=== PATIENT | female | born 1960 | race Caucasian/White ===

== ENCOUNTER 2017-02-14 11:33 | Inpatient (IN) | payer OTHER ==
[~2017-02-14] VITALS: Ht 157.5 cm; Wt 96.0 kg
[~2017-02-14 11:33] MED LIST: ASPI-1182 PO; CARV12.580 PO; DSS100 PO; FURO20TA4 PO; LISI20TA PO; METF500T7 PO; PANT40SU PO; PRAV40TA4 PO; SENN-31 PO; SPIR25TA PO
[2017-02-14 12:03] LABS: GLUCOSE,POINT OF CARE 147 MG/DL (70-110)
[2017-02-14] MEDS ORDERED: DSS100 PO (12:12)
[2017-02-14] MEDS ORDERED: VITAD50000 PO (12:12)
[2017-02-14] MEDS ORDERED: CARV12 PO (12:12)
[2017-02-14] MEDS ORDERED: ARIP2 PO (12:12)
[2017-02-14] MEDS ORDERED: INSU100C14 SQ (12:12)
[2017-02-14] MEDS ORDERED: MOME13HF IH (12:12)
[2017-02-14] MEDS ORDERED: LIDO700A15 TP (12:12)
[2017-02-14] MEDS ORDERED: ALBU8HFA IH (12:12)
[2017-02-14] MEDS ORDERED: EXEN2PEN INJ (12:12)
[2017-02-14] MEDS ORDERED: CANA100T PO (12:12)
[2017-02-14] MEDS ORDERED: APIX5TAB PO (12:12)
[2017-02-14] MEDS ORDERED: INSNOV SQ (12:12)
[2017-02-14] MEDS ORDERED: MONT10TA21 PO (12:12)
[2017-02-14] MEDS ORDERED: INSLAN SQ (12:12)
[2017-02-14] MEDS ORDERED: LORA10TA7 PO (12:12)
[2017-02-14] MEDS ORDERED: ALBU8.5H8 IH (12:12)
[2017-02-14] MEDS ORDERED: TIOT185 IH (12:12)
[2017-02-14] MEDS ORDERED: NITR.4 SL (12:12)
[2017-02-14] MEDS ORDERED: FERR-89 PO (12:12)
[2017-02-14] MEDS ORDERED: GABA-531 PO (12:12)
[2017-02-14 12:40] LABS: BASOPHILS # (AUTO) 0.09 K/uL (0.00-0.20); BASOPHILS % (AUTO) 0.8 % (0.0-2.0); EOSINOPHILS # (AUTO) 0.41 K/uL (0.00-0.70); EOSINOPHILS % (AUTO) 3.47 % (1.0-6.0); HEMATOCRIT 52.4 % (36-46); HEMOGLOBIN 17.9 g/dL (12.0-16.0); LYMPHOCYTES # (AUTO) 2.2 K/uL (1.0-4.8); LYMPHOCYTES % (AUTO) 18.5 % (22.0-44.0); MEAN CORPUSCULAR HEMOGLOBIN 31.1 pg (26.0-34.0); MEAN CORPUSCULAR HGB CONC 34.2 G/dL (31.0-37.0); MEAN CORPUSCULAR VOLUME 91 fL (80-100); MONOCYTES # (AUTO) 0.7 K/uL (0.1-1.0); MONOCYTES % (AUTO) 5.9 % (2.0-9.0); NEUTROPHILS # (AUTO) 8.4 K/uL (1.8-7.7); NEUTROPHILS % (AUTO) 71.4 % (40.0-70.0); PLATELET COUNT (AUTO) 280 K/uL (150-450); RED BLOOD CELL COUNT(AUTO) 5.77 MIL/uL (4.00-5.20); RED CELL DISTRIBUTION WIDTH 13.8 % (11.5-14.5); WHITE BLOOD COUNT (AUTO) 11.7 K/uL (4.5-11.0)
[2017-02-14 12:41] LABS: ANION GAP 15 mmol/L (8-16); CALCIUM, TOTAL 10.1 mg/dL (8.8-10.5); CARBON DIOXIDE 23 mmol/L (22-29); CHLORIDE 103 mmol/L (98-107); CREATININE 1.61 mg/dL (0.60-1.30); GLOMERULAR FILTR. RATE CALC 33 mL/min (>60); POTASSIUM 3.4 mmol/L (3.5-5.1); SODIUM SERUM 141 mmol/L (136-145); UREA NITROGEN, BLOOD 16 mg/dL (7-18)
[2017-02-14 12:52] LABS: PROTHROMBIN TIME 10.1 SEC (9.4-11.6)
[2017-02-14 13:07] LABS: B-TYPE NATRIURETIC PEPTIDE 19 pg/mL (0-100)
[2017-02-14 13:11] LABS: ALANINE AMINOTRANSFERASE 48 U/L (12-78); ALBUMIN 3.9 g/dL (3.4-5.0); ASPARTATE AMINOTRANSFERASE 42 U/L (15-37); BILIRUBIN,TOTAL 0.4 mg/dL (0.1-1.0); CREATINE KINASE MB 1.4 ng/mL (0-5); CREATINE KINASE, TOTAL 88 U/L (26-192); TOTAL PROTEIN, SERUM 8.6 g/dL (6.4-8.2)
[2017-02-14] MEDS ORDERED: ALBUTEROL SULFATE 2.5 MG/0.5 ML NEB SOLUTION NEB ONE (14:00)
[2017-02-14] MEDS ORDERED: IPRATROPIUM BROMIDE 0.5 MG/2.5 ML NEB SOLUTION NEB ONE (14:00)
[2017-02-14] MEDS ORDERED: 0.9% SODIUM CHLORIDE 5 ML NEB SOLUTION NEB ONE (14:03)
[2017-02-14 15:34] LABS: APPEARANCE,URINE CLOUDY (CLEAR); GLUCOSE, URINE (UA) >=1000 mg/dL (NEGATIVE); KETONES,URINE TRACE mg/dL (NEGATIVE); LEUKOCYTE ESTERASE ,URINE NEGATIVE (NEGATIVE); OCCULT BLOOD,URINE NEGATIVE (NEGATIVE); PROTEIN,URINE SEE CONFIRM (NEGATIVE)
[2017-02-14 15:35] LABS: ADD UA MICROSCOPIC YES
[2017-02-14 15:43] LABS: SULFOSALICYLIC ACID,URINE 2+ (Negative)
[2017-02-14 15:44] LABS: SQUAMOUS EPITHELIAL CELL,UR Moderate /LPF (None Seen)
[2017-02-14 15:48] LABS: ABG A-A DIFF O2 96.7 mmHg (10-20.0); ABG BASE EXCESS 2.1 mmol/L (-2.0-3.0); ABG HCO3 25.8 mmol/L (22.0-26.0); ABG OXYHEMOGLOBIN 95.5 % (94.0-100.0); ABG PCO2 44 mmHg (35-45); ABG PH 7.402 (7.35-7.450); ALLEN TEST, BLOOD GAS Positive; TEMPERATURE, FAHRENHEIT, BG 98.6 FAHREN (96.0-98.6)
[2017-02-14 15:53] LABS: RBC,URINE 0-2 /HPF (0-2); WBC,URINE 0-2 /HPF (0-5)
[2017-02-14] MEDS ORDERED: MethylPREDNISolone SOD SUCC 125 MG/2 ML VIAL IVP ONE (16:00)
[2017-02-14] MEDS ORDERED: ACETAMINOPHEN 325 MG TABLET PO PRN ×2 (18:30→19:15)
[2017-02-14] MEDS ORDERED: ONDANSETRON HCL 4 MG/2 ML VIAL IVP PRN ×2 (18:30→19:15)
[2017-02-14] MEDS ORDERED: 0.9% SODIUM CHLORIDE 10 ML SYRINGE IVP PRN (18:30)
[2017-02-14] MEDS ORDERED: NITROGLYCERIN 0.4 MG SUBLINGUAL TABLET #25 SL PRN (19:15)
[2017-02-14] MEDS ORDERED: OxyCODONE HCL/ACETAMINOPHEN 5-325 MG TABLET PO PRN (19:15)
[2017-02-14] MEDS ORDERED: IPRATROPIUM BROMIDE 0.5 MG/2.5 ML NEB SOLUTION NEB PRN (19:15)
[2017-02-14] MEDS ORDERED: POTASSIUM CHLORIDE 20 MEQ ER TABLET PO PRN ×2 (19:15)
[2017-02-14] MEDS ORDERED: MAGNESIUM SULFATE 4 GM/WATER 100 ML IV PRN (19:15)
[2017-02-14] MEDS ORDERED: POTASSIUM CHL 10 MEQ/WATER 50 ML IV PRN (19:15)
[2017-02-14] MEDS ORDERED: BISACODYL 10 MG RECTAL RECTAL SUPPOSITORY PR PRN (19:15)
[2017-02-14] MEDS ORDERED: MORPHINE SULFATE 2 MG/ML SYRINGE IVP PRN (19:15)
[2017-02-14] MEDS ORDERED: ALBUTEROL SULFATE 2.5 MG/0.5 ML NEB SOLUTION NEB PRN (19:15)
[2017-02-14] MEDS ORDERED: DEXTROSE 50%-WATER 25 GM/50 ML SYRINGE IVP PRN ×2 (19:15→23:15)
[2017-02-14] MEDS ORDERED: ZOLPIDEM TARTRATE 5 MG TABLET PO PRN (19:15)
[2017-02-14] MEDS ORDERED: MAGNESIUM SULFATE 2 GM in DEXTROSE 5%-WATER 50 ML IV PRN (19:15)
[2017-02-14] MEDS ORDERED: MAGNESIUM OXIDE 400 MG TABLET PO PRN (19:15)
[2017-02-14] MEDS ORDERED: INSULIN ASPART 100 UNITS/ML SQ PRN (19:15)
[2017-02-14] MEDS ORDERED: MAGNESIUM HYDROXIDE SUSPENSION 30 ML UDCUP PO PRN (19:15)
[2017-02-14 19:48] VITALS: BP 146/86
[2017-02-14] MEDS: ALBUTEROL SULFATE 2.5 MG/0.5 ML NEB SOLUTION NEB SCH ×2 (20:00→20:11)
[2017-02-14] MEDS: IPRATROPIUM BROMIDE 0.5 MG/2.5 ML NEB SOLUTION NEB SCH ×2 (20:00→20:10)
[2017-02-14] MEDS ORDERED: INFLUENZA VIRUS VACCINE QVS 2017-18 (3YR+)/PF 60 MCG/0.5 ML SYRINGE IM ONE (20:30)
[2017-02-14] MEDS: MetFORMIN HCL 500 MG ER TABLET PO SCH (22:37)
[2017-02-14] MEDS: HEPARIN SODIUM,PORCINE 5,000 UNITS/ML VIAL SQ SCH (22:37)
[2017-02-14] MEDS: FUROSEMIDE 20 MG TABLET PO SCH (22:37)
[2017-02-14] MEDS: MethylPREDNISolone SOD SUCC 125 MG/2 ML VIAL IVP SCH (22:37)
[2017-02-14] MEDS: INSULIN DETEMIR 100 UNITS/ML SQ SCH (22:38)
[2017-02-14] MEDS: MONTELUKAST SODIUM 10 MG TABLET PO SCH (23:22)
[2017-02-14 23:30] VITALS: BP 146/84
[2017-02-15 04:10] VITALS: BP 111/65
[2017-02-15 06:02] LABS: BASOPHILS # (AUTO) 0.01 K/uL (0.00-0.20); BASOPHILS % (AUTO) 0.1 % (0.0-2.0); EOSINOPHILS % (AUTO) 0.01 % (1.0-6.0); HEMATOCRIT 48.1 % (36-46); HEMOGLOBIN 16.4 g/dL (12.0-16.0); LYMPHOCYTES # (AUTO) 1.4 K/uL (1.0-4.8); LYMPHOCYTES % (AUTO) 7.7 % (22.0-44.0); MEAN CORPUSCULAR HEMOGLOBIN 31.3 pg (26.0-34.0); MEAN CORPUSCULAR HGB CONC 34.1 G/dL (31.0-37.0); MEAN CORPUSCULAR VOLUME 92 fL (80-100); MONOCYTES # (AUTO) 0.1 K/uL (0.1-1.0); MONOCYTES % (AUTO) 0.3 % (2.0-9.0); NEUTROPHILS # (AUTO) 16.6 K/uL (1.8-7.7); PLATELET COUNT (AUTO) 274 K/uL (150-450); RED BLOOD CELL COUNT(AUTO) 5.25 MIL/uL (4.00-5.20); WHITE BLOOD COUNT (AUTO) 18.1 K/uL (4.5-11.0)
[2017-02-15] MEDS: CANAGLIFLOZIN 100 MG TABLET PO SCH (06:14)
[2017-02-15] MEDS: INSULIN ASPART 100 UNITS/ML SQ PRN ×2 (06:23→21:12)
[2017-02-15 06:44] LABS: ALBUMIN 3.5 g/dL (3.4-5.0); BILIRUBIN,TOTAL 0.6 mg/dL (0.1-1.0); CALCIUM, TOTAL 9.3 mg/dL (8.8-10.5); CHOL/HDL RATIO 4.4 (3.9-5.7); CREATININE 1.56 mg/dL (0.60-1.30); MAGNESIUM 1.9 mg/dL (1.80-2.40); PHOSPHORUS 4.5 mg/dL (2.5-4.9); POTASSIUM 4.1 mmol/L (3.5-5.1); THYROID STIMULATING HORMONE 0.85 uIU/mL (0.36-3.74)
[2017-02-15 06:53] LABS: NEUTROPHILS % (AUTO) 91.9 % (40.0-70.0)
[2017-02-15 07:25] VITALS: BP 125/77
[2017-02-15] MEDS ORDERED: SODIUM CHLORIDE 0.9% 250 ML IV ONE (08:25)
[2017-02-15] MEDS: CARVEDILOL 12.5 MG TABLET PO SCH (08:33)
[2017-02-15] MEDS: ASPIRIN 81 MG EC TABLET PO SCH (08:33)
[2017-02-15] MEDS: MethylPREDNISolone SOD SUCC 125 MG/2 ML VIAL IVP SCH ×3 (08:33→21:05)
[2017-02-15] MEDS: LORATADINE 10 MG TABLET PO SCH (08:33)
[2017-02-15] MEDS: HEPARIN SODIUM,PORCINE 5,000 UNITS/ML VIAL SQ SCH ×2 (08:33→21:05)
[2017-02-15] MEDS: GABAPENTIN 300 MG CAPSULE PO SCH (08:33)
[2017-02-15] MEDS: FUROSEMIDE 20 MG TABLET PO SCH ×2 (08:34→21:05)
[2017-02-15] MEDS: MetFORMIN HCL 500 MG ER TABLET PO SCH ×2 (08:35→21:05)
[2017-02-15] MEDS: APIXABAN 5 MG TABLET PO SCH (08:36)
[2017-02-15] MEDS: ARIPiprazole 5 MG TABLET PO SCH (08:36)
[2017-02-15] MEDS: PRAVASTATIN SODIUM 40 MG TABLET PO SCH (08:37)
[2017-02-15] MEDS: TIOTROPIUM BROMIDE 18 MCG/INH HANDIHALER [5] IH SCH (08:40)
[2017-02-15] MEDS: INSULIN DETEMIR 100 UNITS/ML SQ SCH ×2 (08:46→21:11)
[2017-02-15 09:31] LABS: RBC MORPHOLOGY COMMENT NORMAL RBC MORPH
[2017-02-15] MEDS: CefTRIAXone 1 GM/DEXTROSE 50 ML IV SCH (10:08)
[2017-02-15 11:32] VITALS: BP 143/98
[2017-02-15] MEDS ORDERED: INSULIN ASPART 100 UNITS/ML SQ ONE ×2 (12:15→18:30)
[2017-02-15 15:45] VITALS: BP 140/79
[2017-02-15 19:36] VITALS: BP 149/92
[2017-02-15 20:17] LABS: GLUCOSE COMMENT 1 Received Meds; GLUCOSE,POINT OF CARE 473 MG/DL (70-110)
[2017-02-15 20:17] LABS: GLUCOSE COMMENT 1 Received Meds; GLUCOSE,POINT OF CARE 391 MG/DL (70-110)
[2017-02-15 20:28] LABS: GLUCOSE COMMENT 1 Received Meds; GLUCOSE,POINT OF CARE 492 MG/DL (70-110)
[2017-02-15 20:28] LABS: GLUCOSE COMMENT 1 Repeated; GLUCOSE COMMENT 2 Received Meds; GLUCOSE,POINT OF CARE 476 MG/DL (70-110)
[2017-02-15 20:28] LABS: GLUCOSE COMMENT 1 FASTING; GLUCOSE COMMENT 2 Received Meds; GLUCOSE,POINT OF CARE 229 MG/DL (70-110)
[2017-02-15 20:28] LABS: GLUCOSE COMMENT 1 Received Meds; GLUCOSE COMMENT 2 Repeated; GLUCOSE,POINT OF CARE 447 MG/DL (70-110)
[2017-02-15] MEDS ORDERED: INSULIN DETEMIR 100 UNITS/ML SQ SCH (21:00)
[2017-02-15] MEDS: MONTELUKAST SODIUM 10 MG TABLET PO SCH (21:05)
[2017-02-16 00:21] VITALS: BP 150/79
[2017-02-16 04:49] VITALS: BP 153/91
[2017-02-16] MEDS: CANAGLIFLOZIN 100 MG TABLET PO SCH (05:34)
[2017-02-16] MEDS: INSULIN ASPART 100 UNITS/ML SQ PRN ×2 (05:35→11:48)
[2017-02-16 08:41] VITALS: BP 149/90
[2017-02-16] MEDS: FUROSEMIDE 20 MG TABLET PO SCH (09:00)
[2017-02-16] MEDS: GABAPENTIN 300 MG CAPSULE PO SCH (09:00)
[2017-02-16] MEDS: HEPARIN SODIUM,PORCINE 5,000 UNITS/ML VIAL SQ SCH (09:00)
[2017-02-16] MEDS: ASPIRIN 81 MG EC TABLET PO SCH (09:01)
[2017-02-16] MEDS: CARVEDILOL 12.5 MG TABLET PO SCH (09:01)
[2017-02-16] MEDS: MethylPREDNISolone SOD SUCC 125 MG/2 ML VIAL IVP SCH ×2 (09:01→15:53)
[2017-02-16] MEDS: TIOTROPIUM BROMIDE 18 MCG/INH HANDIHALER [5] IH SCH (09:01)
[2017-02-16] MEDS: CefTRIAXone 1 GM/DEXTROSE 50 ML IV SCH (09:01)
[2017-02-16] MEDS: LORATADINE 10 MG TABLET PO SCH (09:01)
[2017-02-16] MEDS: ARIPiprazole 5 MG TABLET PO SCH (09:02)
[2017-02-16] MEDS: MetFORMIN HCL 500 MG ER TABLET PO SCH (09:02)
[2017-02-16] MEDS: APIXABAN 5 MG TABLET PO SCH (09:02)
[2017-02-16] MEDS: INSULIN DETEMIR 100 UNITS/ML SQ SCH (09:13)
[2017-02-16] MEDS: PRAVASTATIN SODIUM 40 MG TABLET PO SCH (09:13)
[2017-02-16 11:26] VITALS: BP 151/105
[2017-02-16 15:34] VITALS: BP 151/82
[2017-02-16 17:27] LABS: GLUCOSE,POINT OF CARE 367 MG/DL (70-110)
[2017-02-16] MEDS ORDERED: INSULIN ASPART 100 UNITS/ML SQ ONE (18:00)
[2017-02-16 20:43] LABS: GLUCOSE COMMENT 1 Received Meds; GLUCOSE,POINT OF CARE 399 MG/DL (70-110)
[2017-02-16 20:43] LABS: GLUCOSE,POINT OF CARE 486 MG/DL (70-110)
== END 2017-02-16 19:10 | disposition home or self-care (01) | DRG 243 ==
LOC: EMS 11:35 → 5N 18:36
PROVIDERS: ADMIT Internal Medicine; ATTEND Internal Medicine
DX: K21.9 Gastro-esophageal reflux disease without esophagitis (principal); J96.00 Acute respiratory failure, unspecified whether with hypoxia or hypercapnia; I11.0 Hypertensive heart disease with heart failure; I50.9 Heart failure, unspecified; J44.1 Chronic obstructive pulmonary disease with (acute) exacerbation; E11.65 Type 2 diabetes mellitus with hyperglycemia; N39.0 Urinary tract infection, site not specified; E66.9 Obesity, unspecified; R07.9 Chest pain, unspecified; E55.9 Vitamin D deficiency, unspecified; F32.9 Major depressive disorder, single episode, unspecified; E87.6 Hypokalemia; K59.00 Constipation, unspecified; E78.00 Pure hypercholesterolemia, unspecified; E78.5 Hyperlipidemia, unspecified; G47.30 Sleep apnea, unspecified; Z90.710 Acquired absence of both cervix and uterus; Z88.1 Allergy status to other antibiotic agents; Z88.8 Allergy status to other drugs, medicaments and biological substances; Z68.38 Body mass index [BMI] 38.0-38.9, adult
CPT/HCPCS: 70450; 82306; 82805; 82947; 82962; 83735; 84100; 84443; 87086; 90471; 93005; 94640; 94660; 96374; 99285; J0696; J1644; J1815; J2930; J7050